=== PATIENT | female | born 2000 | race Caucasian/White ===

== ENCOUNTER 2021-03-14 17:35 | Emergency (ER) | payer OTHER ==
[2021-03-14] MEDS ORDERED: Lorazepam 2 MG/ML VIAL ONE (17:49)
== END 2021-03-14 19:25 | disposition home or self-care (01) ==
LOC: CSHERS 17:35
DX: S83.015A Lateral dislocation of left patella, initial encounter (principal); X50.1XXA Overexertion from prolonged static or awkward postures, initial encounter
CPT/HCPCS: 27560; 96374; J2060